=== PATIENT | female | born 1990 | race African-American/Black ===

== ENCOUNTER 2017-09-11 12:22 | Outpatient (CLI) | payer MEDICAID ==
[~2017-09-11 12:22] MED LIST: IBUP-1222 PO; NITR100C56 PO; OXYC-302 PO; OXYC10TA6 PO
[2017-09-11 12:49] VITALS: BP 110/64
== END 2017-09-11 14:52 | disposition home or self-care (01) ==
LOC: LDOP 12:22
PROVIDERS: ATTEND Obstetrics & Gynecology
DX: O46.93 Antepartum hemorrhage, unspecified, third trimester (principal); O99.513 Diseases of the respiratory system complicating pregnancy, third trimester; J45.909 Unspecified asthma, uncomplicated; Z3A.35 35 weeks gestation of pregnancy
CPT/HCPCS: 59025; 89060; 99211; G0463; Q0114

== ENCOUNTER 2017-09-16 00:54 | Inpatient (IN) | payer MEDICAID ==
[~2017-09-16] VITALS: Ht 157.5 cm; Wt 70.5 kg
[2017-09-16] VITALS (7 sets, daily range): BP systolic 117–130; BP diastolic 69–82
[2017-09-16] MEDS ORDERED: LACTATED RINGERS 1,000 ML IVBOLUS ONE ×2 (01:30→03:30)
[2017-09-16] MEDS ORDERED: TERBUTALINE 1 MG/ML, 1ML ONE (01:51)
[2017-09-16] MEDS ORDERED: TERBUTALINE 1 MG/ML, 1ML SQ ONE (02:00)
[2017-09-16 02:10] LABS: HEMATOCRIT 37.2 % (34.6-47.8); HEMOGLOBIN 12.9 g/dL (11.7-16.4); WHITE BLOOD COUNT 7.5 x10^3/uL (3.4-10)
[2017-09-16] MEDS ORDERED: NEWBORN KIT ONE (02:59)
[2017-09-16] MEDS ORDERED: OXYTOCIN 30U/ 0.9% NaCL 500ML 500 ML ONE (03:00)
[2017-09-16] MEDS ORDERED: METOCLOPRAMIDE 5 MG/ML, 2ML ONE (03:00)
[2017-09-16] MEDS ORDERED: SODIUM CITRATE/CITRIC ACID 30 ML UDC ONE ×2 (03:00→03:50)
[2017-09-16] MEDS ORDERED: LACTATED RINGERS 1,000 ML IV SCH ×3 (03:13→04:55)
[2017-09-16] MEDS ORDERED: OXYTOCIN 30U/ 0.9% NaCL 500ML 500 ML IV SCH ×2 (03:13→04:55)
[2017-09-16] MEDS ORDERED: METOCLOPRAMIDE 5 MG/ML, 2ML IV ONE (03:30)
[2017-09-16] MEDS ORDERED: SODIUM CITRATE/CITRIC ACID 30 ML UDC PO ONE (03:30)
[2017-09-16] MEDS ORDERED: OXYTOCIN 10 UNITS/ML, 1ML ONE (03:50)
[2017-09-16] MEDS ORDERED: CEFAZOLIN 1,000 MG ONE (03:50)
[2017-09-16] MEDS ORDERED: KETOROLAC 30 MG/1 ML ONE ×2 (03:50→10:24)
[2017-09-16] MEDS: LACTATED RINGERS 1,000 ML IV SCH ×2 (04:55→14:55)
[2017-09-16] MEDS ORDERED: KETOROLAC 30 MG/1 ML IV SCH (05:00)
[2017-09-16] MEDS ORDERED: MISOPROSTOL 200 MCG TABLET PR PRN ×2 (05:00→08:00)
[2017-09-16] MEDS ORDERED: GLYCERIN ADULT SUPP PR PRN ×2 (05:00→08:00)
[2017-09-16] MEDS ORDERED: SIMETHICONE 80 MG CHEW TAB PO PRN (05:00)
[2017-09-16] MEDS ORDERED: DOCUSATE 100 MG CAPSULE PO PRN (05:00)
[2017-09-16] MEDS ORDERED: METOCLOPRAMIDE 5 MG/ML, 2ML IV PRN (05:00)
[2017-09-16] MEDS ORDERED: ONDANSETRON 2MG/ML, 2ML IV PRN ×2 (05:00→08:00)
[2017-09-16] MEDS ORDERED: OXYcodone/APAP 5/325MG TABLET PO PRN ×3 (05:00→08:00)
[2017-09-16] MEDS ORDERED: CALCIUM CARBONATE 500 MG TAB.CHEW PO PRN ×2 (05:00→08:00)
[2017-09-16] MEDS ORDERED: BISACODYL 10 MG SUPP PR PRN ×2 (05:00→08:00)
[2017-09-16] MEDS ORDERED: METHYLERGONOVINE 0.2 MG/ML IM PRN ×2 (05:00→08:00)
[2017-09-16] MEDS ORDERED: ACETAMINOPHEN 325 MG TABLET PO PRN ×6 (05:00→08:00)
[2017-09-16] MEDS ORDERED: HYDROcodone/APAP 5/325 TABLET ONE (05:41)
[2017-09-16] MEDS ORDERED: OXYcodone/APAP 5/325MG TABLET ONE (05:45)
[2017-09-16] MEDS: OXYTOCIN 30U/ 0.9% NaCL 500ML 500 ML IV SCH ×2 (07:37→17:37)
[2017-09-16] MEDS ORDERED: IBUPROFEN 600 MG TABLET PO PRN (08:00)
[2017-09-16] MEDS ORDERED: RHOGAM FROM BLOOD BANK 1 NOTE EA IM/IV ONE (08:00)
[2017-09-16] MEDS ORDERED: morphine SULFATE 10 MG/ML, 1ML ONE ×3 (08:22→16:25)
[2017-09-16] MEDS ORDERED: morphine SULFATE 10 MG/ML, 1ML IVPush ONE (08:30)
[2017-09-16] MEDS: PRENATAL VIT/IRON/FA 1 EACH TABLET PO SCH (09:00)
[2017-09-16] MEDS ORDERED: PRENATAL VIT/IRON/FA 1 EACH TABLET PO SCH (09:00)
[2017-09-16] MEDS: OXYcodone/APAP 5/325MG TABLET PO PRN (09:23)
[2017-09-16] MEDS: KETOROLAC 30 MG/1 ML IVPush SCH ×3 (10:28→22:34)
[2017-09-16] MEDS ORDERED: KETOROLAC 30 MG/1 ML IM PRN (10:30)
[2017-09-16] MEDS: MORPHINE SULFATE 4 MG/ML, 1ML IVPush PRN ×2 (10:38→16:30)
[2017-09-16 13:04] LABS: HEMATOCRIT 33.2 % (34.6-47.8); HEMOGLOBIN 11.3 g/dL (11.7-16.4); WHITE BLOOD COUNT 7.6 x10^3/uL (3.4-10)
[2017-09-16] MEDS: OXYcodone IR 5MG TABLET PO PRN ×3 (13:50→23:41)
[2017-09-17 00:15] VITALS: BP 117/77
[2017-09-17] MEDS: OXYcodone IR 5MG TABLET PO PRN (03:26)
[2017-09-17] MEDS: KETOROLAC 30 MG/1 ML IVPush SCH ×3 (04:18→16:32)
[2017-09-17 04:28] VITALS: BP 114/74
[2017-09-17] MEDS: OXYcodone/APAP 5/325MG TABLET PO PRN ×3 (07:40→18:58)
[2017-09-17 08:10] VITALS: BP 114/81
[2017-09-17] MEDS: DOCUSATE 100 MG CAPSULE PO PRN (10:18)
[2017-09-17] MEDS: PRENATAL VIT/IRON/FA 1 EACH TABLET PO SCH (10:18)
[2017-09-17 20:00] VITALS: BP 129/95
[2017-09-17] MEDS: IBUPROFEN 600 MG TABLET PO PRN (22:34)
[2017-09-18] MEDS: OXYcodone/APAP 5/325MG TABLET PO PRN ×5 (00:05→20:05)
[2017-09-18] MEDS: IBUPROFEN 600 MG TABLET PO PRN ×3 (04:43→23:49)
[2017-09-18 08:00] VITALS: BP 116/70
[2017-09-18] MEDS: PRENATAL VIT/IRON/FA 1 EACH TABLET PO SCH (10:51)
[2017-09-18] MEDS: DOCUSATE 100 MG CAPSULE PO PRN (10:51)
[2017-09-18 20:30] VITALS: BP 133/86
[2017-09-18] MEDS: OXYcodone IR 5MG TABLET PO PRN (23:49)
[2017-09-19] MEDS: OXYcodone IR 5MG TABLET PO PRN ×3 (04:01→14:34)
[2017-09-19 07:35] VITALS: BP 135/91
[2017-09-19] MEDS: IBUPROFEN 600 MG TABLET PO PRN (11:25)
[2017-09-19] MEDS ORDERED: OXYC5TAB3 PO (13:07)
== END 2017-09-19 15:55 | disposition home or self-care (01) | DRG 765 ==
LOC: LDOP 00:54 → LDIP 03:03 → 2NW 06:22
PROVIDERS: ADMIT Obstetrics & Gynecology; ATTEND Obstetrics & Gynecology
PROC: 10D00Z1 Extraction of Products of Conception, Low, Open Approach (ICD-10-PCS; principal; 2017-09-16)
DX: O34.211 Maternal care for low transverse scar from previous cesarean delivery (principal); O60.14X0 Preterm labor third trimester with preterm delivery third trimester, not applicable or unspecified; O10.92 Unspecified pre-existing hypertension complicating childbirth; O11.4 Pre-existing hypertension with pre-eclampsia, complicating childbirth; O99.52 Diseases of the respiratory system complicating childbirth; J45.909 Unspecified asthma, uncomplicated; R55 Syncope and collapse; Z37.0 Single live birth; Z3A.36 36 weeks gestation of pregnancy; Z82.3 Family history of stroke; Z82.49 Family history of ischemic heart disease and other diseases of the circulatory system; Z90.710 Acquired absence of both cervix and uterus; Z91.011 Allergy to milk products; Z91.09 Other allergy status, other than to drugs and biological substances
CPT/HCPCS: 36415; 81001; 85025; 85461; 86850; 86900; 86922; 86923; 87077; 87086; 87186; J0690; J1885; J2790; J2270; J2590; J2765; J3105; J7120

== ENCOUNTER → 2018-10-07 | Outpatient (CLI) | payer MEDICAID ==
[~2018-10-07] VITALS: Ht 157.5 cm; Wt 68.2 kg
[~2018-10-07] MED LIST changes: +OXYC5TAB3 PO
== END | disposition home or self-care (01) ==
LOC: LDOP 11:33
PROVIDERS: ATTEND Obstetrics & Gynecology
DX: O26.893 Other specified pregnancy related conditions, third trimester (principal); Z3A.29 29 weeks gestation of pregnancy; I74.9 Embolism and thrombosis of unspecified artery
CPT/HCPCS: 59025; 99201; G0463

== ENCOUNTER 2018-12-12 05:28 | Inpatient (IN) | payer MEDICAID ==
[~2018-12-12] VITALS: Ht 157.5 cm; Wt 70.0 kg
[2018-12-12] MEDS ORDERED: LACTATED RINGERS 1,000 ML IV SCH ×2 (05:35→05:36)
[2018-12-12] MEDS ORDERED: OXYTOCIN 30U/ 0.9% NaCL 500ML 500 ML IV SCH (05:36)
[2018-12-12] MEDS ORDERED: OXYTOCIN 30U/ 0.9% NaCL 500ML 500 ML ONE (05:43)
[2018-12-12] MEDS ORDERED: SODIUM CITRATE/CITRIC ACID 30 ML UDC ONE (05:43)
[2018-12-12] MEDS ORDERED: METOCLOPRAMIDE 5 MG/ML, 2ML ONE (05:44)
[2018-12-12] MEDS ORDERED: LACTATED RINGERS 1,000 ML IVBOLUS ONE (06:00)
[2018-12-12] MEDS ORDERED: METOCLOPRAMIDE 5 MG/ML, 2ML IV ONE (06:00)
[2018-12-12] MEDS ORDERED: PLEASE ENTER HEIGHT AND WEIGHT MC SCH (06:00)
[2018-12-12] MEDS ORDERED: CALCIUM CARBONATE 500 MG TAB.CHEW PO PRN ×2 (06:00→08:00)
[2018-12-12] MEDS ORDERED: SODIUM CITRATE/CITRIC ACID 30 ML UDC PO ONE (06:00)
[2018-12-12] MEDS ORDERED: ONDANSETRON 2MG/ML, 2ML IVPush ONE (06:00)
[2018-12-12 06:05] LABS: BASOPHILS # (AUTO) 0.01 x10^3/uL (0-0.1); BASOPHILS % (AUTO) 0 % (0-1); EOSINOPHILS # (AUTO) 0.08 x10^3/uL (0-0.4); EOSINOPHILS % (AUTO) 1 % (1-7); LYMPHOCYTES # (AUTO) 1.34 x10^3/uL (1-3.4); LYMPHOCYTES % (AUTO) 23 % (22-44); MD NO; MEAN CORPUSCULAR HEMOGLOBIN 32.8 pg (27.0-34.8); MEAN CORPUSCULAR HGB CONC 34.9 g/dL (32.4-35.8); MEAN CORPUSCULAR VOLUME 93.9 fL (80-100); MEAN PLATELET VOLUME 7.8 fL (7.4-10.4); MONOCYTES # (AUTO) 0.38 x10^3/uL (0.2-0.8); MONOCYTES % (AUTO) 7 % (2-9); NEUTROPHILS # (AUTO) 4.06 x10^3/uL (1.8-6.8); NEUTROPHILS % (AUTO) 69 % (42-75); PLATELET COUNT 199 x10^3/uL (130-400); RED BLOOD COUNT 3.83 x10^6/uL (3.82-5.3); RED CELL DISTRIBUTION WIDTH 14.3 % (9.6-15.2)
[2018-12-12] MEDS ORDERED: hydrALAzine 20 MG/ML, 1ML IV PRN (06:30)
[2018-12-12] MEDS ORDERED: PROMETHAZINE 25 MG/ML, 1ML IV PRN (06:30)
[2018-12-12] MEDS ORDERED: DIPHENHYDRAMINE 50 MG/ML, 1ML IVPush PRN (06:30)
[2018-12-12] MEDS ORDERED: HYDROcodone/APAP 7.5-325MG/15ML UDC PO PRN (06:30)
[2018-12-12] MEDS ORDERED: HYDROmorphone 2 MG/ML, 1ML IVPush PRN (06:30)
[2018-12-12] MEDS ORDERED: ONDANSETRON 2MG/ML, 2ML IV PRN ×2 (06:30→08:00)
[2018-12-12] MEDS ORDERED: LABETALOL 5MG/ML, 20ML IV PRN (06:30)
[2018-12-12] MEDS ORDERED: FENTANYL PF 100 MCG/2ML IV PRN (06:30)
[2018-12-12] MEDS ORDERED: EPHEDRINE 50 MG/ML, 1ML IVPush PRN (06:30)
[2018-12-12] MEDS: LACTATED RINGERS 1,000 ML IV SCH ×5 (07:35→23:35)
[2018-12-12] MEDS ORDERED: METHYLERGONOVINE 0.2 MG/ML IM PRN (08:00)
[2018-12-12] MEDS ORDERED: MEPERIDINE/PF 50 MG/ML IVPush PRN (08:00)
[2018-12-12] MEDS ORDERED: METOCLOPRAMIDE 5 MG/ML, 2ML IV PRN (08:00)
[2018-12-12] MEDS ORDERED: OXYcodone/APAP 5/325MG TABLET PO PRN (08:00)
[2018-12-12] MEDS: KETOROLAC 30 MG/1 ML IV SCH ×3 (08:00→20:02)
[2018-12-12] MEDS ORDERED: DIPH,PERTUSS(ACELL),TET VAC/PF NC IM-VACC PRN (08:00)
[2018-12-12] MEDS ORDERED: morphine SULFATE 10 MG/ML, 1ML IVPush PRN (08:00)
[2018-12-12] MEDS ORDERED: MISOPROSTOL 200 MCG TABLET PR PRN (08:00)
[2018-12-12] MEDS: PRENATAL VIT/IRON/FA 1 EACH TABLET PO SCH (09:00)
[2018-12-12] MEDS: OXYTOCIN 30U/ 0.9% NaCL 500ML 500 ML IV SCH ×2 (09:33→18:05)
[2018-12-12] MEDS: OXYcodone/APAP 5/325MG TABLET PO PRN ×3 (10:27→21:08)
[2018-12-12 11:15] VITALS: BP 111/69
[2018-12-12] MEDS: morphine SULFATE 10 MG/ML, 1ML IVPush PRN ×2 (12:43→18:42)
[2018-12-12 12:48] VITALS: BP 117/72
[2018-12-12 14:25] VITALS: BP 129/86
[2018-12-12 15:12] LABS: BASOPHILS # (AUTO) 0.04 x10^3/uL (0-0.1); BASOPHILS % (AUTO) 0 % (0-1); EOSINOPHILS # (AUTO) 0.01 x10^3/uL (0-0.4); EOSINOPHILS % (AUTO) 0 % (1-7); LYMPHOCYTES # (AUTO) 1.36 x10^3/uL (1-3.4); LYMPHOCYTES % (AUTO) 17 % (22-44); MD NO; MEAN CORPUSCULAR HEMOGLOBIN 33.2 pg (27.0-34.8); MEAN CORPUSCULAR HGB CONC 34.5 g/dL (32.4-35.8); MEAN CORPUSCULAR VOLUME 96.1 fL (80-100); MEAN PLATELET VOLUME 7.6 fL (7.4-10.4); MONOCYTES # (AUTO) 0.37 x10^3/uL (0.2-0.8); MONOCYTES % (AUTO) 5 % (2-9); NEUTROPHILS # (AUTO) 6.18 x10^3/uL (1.8-6.8); NEUTROPHILS % (AUTO) 78 % (42-75); PLATELET COUNT 168 x10^3/uL (130-400); RED BLOOD COUNT 3.34 x10^6/uL (3.82-5.3); RED CELL DISTRIBUTION WIDTH 14.2 % (9.6-15.2)
[2018-12-12 17:08] VITALS: BP 120/77
[2018-12-12 19:57] VITALS: BP 111/75
[2018-12-12] MEDS ORDERED: RHOGAM FROM BLOOD BANK 1 NOTE EA IM/IV ONE (20:00)
[2018-12-13 00:08] VITALS: BP 115/75
[2018-12-13] MEDS: KETOROLAC 30 MG/1 ML IV SCH ×4 (02:00→20:30)
[2018-12-13] MEDS: OXYcodone/APAP 5/325MG TABLET PO PRN (02:53)
[2018-12-13] MEDS: LACTATED RINGERS 1,000 ML IV SCH ×6 (03:35→23:35)
[2018-12-13] MEDS: OXYTOCIN 30U/ 0.9% NaCL 500ML 500 ML IV SCH ×3 (03:35→23:35)
[2018-12-13 04:26] VITALS: BP 126/77
[2018-12-13] MEDS: morphine SULFATE 10 MG/ML, 1ML IVPush PRN ×2 (06:07→12:34)
[2018-12-13 07:40] VITALS: BP 110/66
[2018-12-13] MEDS: PRENATAL VIT/IRON/FA 1 EACH TABLET PO SCH (07:56)
[2018-12-13] MEDS: DOCUSATE 100 MG CAPSULE PO PRN ×2 (07:56→20:30)
[2018-12-13] MEDS: OXYcodone IR 5MG TABLET PO PRN ×3 (10:58→20:30)
[2018-12-13 20:30] VITALS: BP 133/78
[2018-12-13] MEDS: SIMETHICONE 80 MG CHEW TAB PO PRN (20:30)
[2018-12-14] MEDS: OXYcodone IR 5MG TABLET PO PRN ×6 (00:41→23:44)
[2018-12-14] MEDS: SIMETHICONE 80 MG CHEW TAB PO PRN ×4 (02:25→21:31)
[2018-12-14] MEDS: KETOROLAC 30 MG/1 ML IV SCH (02:25)
[2018-12-14] MEDS: LACTATED RINGERS 1,000 ML IV SCH ×3 (07:35→15:35)
[2018-12-14 08:00] VITALS: BP 131/80
[2018-12-14] MEDS: IBUPROFEN 600 MG TABLET PO PRN ×3 (08:12→21:31)
[2018-12-14] MEDS: DOCUSATE 100 MG CAPSULE PO PRN ×2 (08:12→21:31)
[2018-12-14] MEDS: PRENATAL VIT/IRON/FA 1 EACH TABLET PO SCH (08:12)
[2018-12-14] MEDS: OXYTOCIN 30U/ 0.9% NaCL 500ML 500 ML IV SCH (09:35)
[2018-12-14 19:35] VITALS: BP 133/83
[2018-12-15] MEDS: SIMETHICONE 80 MG CHEW TAB PO PRN (04:06)
[2018-12-15] MEDS: OXYcodone IR 5MG TABLET PO PRN ×3 (04:06→16:14)
[2018-12-15] MEDS: IBUPROFEN 600 MG TABLET PO PRN ×3 (04:06→16:14)
[2018-12-15 08:00] VITALS: BP 151/93
[2018-12-15] MEDS: DOCUSATE 100 MG CAPSULE PO PRN (10:20)
[2018-12-15] MEDS: PRENATAL VIT/IRON/FA 1 EACH TABLET PO SCH (10:20)
[2018-12-15] MEDS ORDERED: oxycodone (12:27)
[2018-12-15] MEDS ORDERED: IBUP-1223 PO (12:30)
[2018-12-15] MEDS ORDERED: OXYC5CAP2 PO (12:30)
== END 2018-12-15 17:12 | disposition home or self-care (01) | DRG 788 ==
LOC: LDOP 05:28 → LDIP 05:42 → 2NW 09:58
PROVIDERS: ADMIT Obstetrics & Gynecology; ATTEND Obstetrics & Gynecology
PROC: 10D00Z1 Extraction of Products of Conception, Low, Open Approach (ICD-10-PCS; principal; 2018-12-12)
PROC: 30233S1 Transfusion of Nonautologous Globulin into Peripheral Vein, Percutaneous Approach (ICD-10-PCS; 2018-12-12)
DX: O34.211 Maternal care for low transverse scar from previous cesarean delivery (principal); J45.909 Unspecified asthma, uncomplicated; O99.52 Diseases of the respiratory system complicating childbirth; Z37.0 Single live birth; Z3A.38 38 weeks gestation of pregnancy; Z82.3 Family history of stroke; Z82.49 Family history of ischemic heart disease and other diseases of the circulatory system; Z87.891 Personal history of nicotine dependence; Z91.011 Allergy to milk products; Z91.048 Other nonmedicinal substance allergy status; O90.81 Anemia of the puerperium; D64.9 Anemia, unspecified
CPT/HCPCS: 36415; J2790; 85025; 85461; 86850; 86900; 86923; G0378; J0690; J1170; J1885; J3010; J2270; J2590; J2765; J7120